=== PATIENT | female | born 1990 | race Caucasian/White ===

== ENCOUNTER 2020-11-15 | Emergency (ER) | payer SELFPAY ==
[~2020-11-15] VITALS: Ht 162.6 cm; Wt 65.0 kg
[2020-11-15] MEDS ORDERED: DIPHENHYDRAMINE 50MG/ML VIAL IV ONE (00:30)
[2020-11-15] MEDS ORDERED: DIPH25CA83 PO ×2 (03:11→15:30)
[2020-11-15] MEDS ORDERED: EPIN0.3P3 IM ×2 (03:11→15:30)
[2020-11-15 03:21] VITALS: BP 103/53
== END 2020-11-15 03:24 | disposition home or self-care (01) ==
LOC: ER
DX: T78.2XXA Anaphylactic shock, unspecified, initial encounter (principal); Z91.013 Allergy to seafood
CPT/HCPCS: 93005; 96374; 99291; J1200; 99283